=== PATIENT | male | born 1975 | race Caucasian/White ===

== ENCOUNTER 2017-02-07 21:36 | Emergency (ER) | payer MEDICARE, MEDICAID ==
[~2017-02-07 21:36] MED LIST: COMPAZINE10 MG PO; DEPAKOTE ER500 M1 PO; DILANTIN100 M1 PO; IBUPROFEN800 M1 PO; LIPITOR10 M1 PO; NORCO 5-325 TA1 EACH PO
[2017-02-07] MEDS ORDERED: BENTYL10 M1 PO (22:06)
[2017-02-07] MEDS ORDERED: ZOFRAN4 M2 PO (22:06)
[2017-07-12] MEDS ORDERED: NORCO 5-325 TA1 EACH PO (20:55)
[2017-08-08] MEDS ORDERED: ELIQUIS5 M1 PO (21:02)
[2017-08-08] MEDS ORDERED: glycopyrolate (21:04)
[2017-08-08] MEDS ORDERED: ZOFRAN4 M2 PO (21:05)
[2017-08-08] MEDS ORDERED: CYCLOBENZAPRINE10 M1 PO (22:24)
== END 2017-02-07 21:55 ==
LOC: EDMED 21:36
DX: K52.9 Noninfective gastroenteritis and colitis, unspecified (principal); I25.2 Old myocardial infarction; I10 Essential (primary) hypertension; G40.909 Epilepsy, unspecified, not intractable, without status epilepticus; F32.9 Major depressive disorder, single episode, unspecified; Z90.49 Acquired absence of other specified parts of digestive tract; Z79.899 Other long term (current) drug therapy

== ENCOUNTER 2017-03-10 22:04 | Emergency (ER) | payer MEDICARE, MEDICAID ==
[~2017-03-10 22:04] MED LIST changes: +BENTYL10 M1 PO; +ZOFRAN4 M2 PO
[2017-03-10 22:57] LABS: BASO % 0.8 % (0-2); BASO ABSOLUTE COUNT 0.1 tho/cmm (0.0-0.2); EOS % 6.4 % (0-7); EOSINOPHIL ABSOLUTE COUNT 0.5 tho/cmm (0.0-0.7); HGB-HEMOGLOBIN 13.5 gm/dl (13.5-17.0); IMMATURE GRANULOCYTES ABSOLUTE 0.01 tho/cmm (0-0.03); IMMATURE GRANULOCYTES PERCENT 0.1 % (0-0.3); LYMPH % 30.9 % (20-45); LYMPH ABSOLUTE COUNT 2.3 tho/cmm (0.8-4.5); MCH (MEAN CORPUSCULAR HGB) 32.1 pg (28.0-32.0); MCHC MEAN CORPUSCULAR HGB CONC 35.5 % (32.0-36.0); MCV (MEAN CELL VOLUME) 90.5 fl (82.0-96.0); MEAN PLATELET VOLUME 10.9 cmc (9.4-12.4); MONO % 10.5 % (0-12); MONOCYTE ABSOLUTE COUNT 0.8 tho/cmm (0.0-1.2); NEUTROPHIL ABSOLUTE COUNT 3.9 tho/cmm (1.6-8.0); NEUTROPHIL-AUTOMATED 3.9 tho/cmm (1.6-8.0); NEUTROPHILS % 51.3 % (40-80); PLATELET COUNT 183 tho/cmm (150-450); RED CELL DISTRIBUTION WIDTH 11.8 % (12.4-16.4); WHITE BLOOD COUNT 7.5 tho/cmm (4.0-10.0)
[2017-03-10 23:10] LABS: ALB/GLOB RATIO 0.9 (0.8-2.0); ALBUMIN 3.4 g/dl (3.5-5.0); ALKALINE PHOSPHATASE 53 U/L (33-138); ALT/SGPT 27 U/L (12-78); ANION GAP 13 mmol/L (0-20); AST/SGOT 21 U/L (10-40); BILIRUBIN,TOTAL 0.2 mg/dl (0.0-1.5); BLOOD UREA NITROGEN 13 mg/dl (6-24); CALCIUM 8.5 mg/dl (8.5-10.5); CARBON DIOXIDE-VENOUS 24 mmol/L (22-32); CHLORIDE 108 mmol/l (96-110); CREATININE 0.75 mg/dl (0.60-1.30); GLUCOSE 97 mg/dL (70-110); LIPASE 233 U/L (73-393); POTASSIUM 3.6 mmol/L (3.7-5.1); SODIUM 141 mmol/L (135-145); eGFR VALUE FOR BLACK >90 mL/Min
[2017-03-10 23:33] LABS: URINE APPEARANCE HAZY; URINE BILIRUBIN NEGATIVE (NEG); URINE BLOOD NEGATIVE (NEG); URINE COLOR YELLOW; URINE GLUCOSE (UA) NEGATIVE (NEG); URINE KETONE NEGATIVE (NEG); URINE LEUKOCYTE ESTERASE POSITIVE (NEG); URINE NITRITE NEGATIVE (NEG); URINE PROTEIN NEGATIVE (NEG); URINE SPECIFIC GRAVITY 1.005 (1.003-1.030)
[2017-03-10 23:57] LABS: URINE BACTERIA 1+; URINE EPITHELIAL CELLS RARE /[HPF] (0-10); URINE RBC 0-3 /[HPF] (0-5)
[2017-07-12] MEDS ORDERED: NORCO 5-325 TA1 EACH PO (20:55)
[2017-08-08] MEDS ORDERED: ELIQUIS5 M1 PO (21:02)
[2017-08-08] MEDS ORDERED: glycopyrolate (21:04)
[2017-08-08] MEDS ORDERED: ZOFRAN4 M2 PO (21:05)
[2017-08-08] MEDS ORDERED: CYCLOBENZAPRINE10 M1 PO (22:24)
== END 2017-03-11 00:17 ==
LOC: EDMED 22:04
PROVIDERS: Emergency Medicine
DX: M54.16 Radiculopathy, lumbar region (principal); R10.31 Right lower quadrant pain; G89.29 Other chronic pain; I10 Essential (primary) hypertension; F32.9 Major depressive disorder, single episode, unspecified; E78.5 Hyperlipidemia, unspecified; Z79.899 Other long term (current) drug therapy
CPT/HCPCS: J1885; J2405

== ENCOUNTER 2017-03-13 21:17 | Emergency (ER) | payer MEDICARE, MEDICAID ==
[2017-07-12] MEDS ORDERED: NORCO 5-325 TA1 EACH PO (20:55)
[2017-08-08] MEDS ORDERED: ELIQUIS5 M1 PO (21:02)
[2017-08-08] MEDS ORDERED: glycopyrolate (21:04)
[2017-08-08] MEDS ORDERED: ZOFRAN4 M2 PO (21:05)
[2017-08-08] MEDS ORDERED: CYCLOBENZAPRINE10 M1 PO (22:24)
== END 2017-03-14 00:15 ==
LOC: EDMED 21:17
DX: M54.9 Dorsalgia, unspecified (principal); G89.29 Other chronic pain; I25.2 Old myocardial infarction; I10 Essential (primary) hypertension; F32.9 Major depressive disorder, single episode, unspecified; Z79.899 Other long term (current) drug therapy
CPT/HCPCS: J2270; J2405; J3360

== ENCOUNTER 2017-05-02 20:16 | Emergency (ER) | payer MEDICARE, MEDICAID ==
[2017-05-02] MEDS ORDERED: ZITHROMAX500 M2 PO (21:28)
[2017-05-02] MEDS ORDERED: CODEINE-GUAIFE120 M1 PO (21:28)
[2017-07-12] MEDS ORDERED: NORCO 5-325 TA1 EACH PO (20:55)
[2017-08-08] MEDS ORDERED: ELIQUIS5 M1 PO (21:02)
[2017-08-08] MEDS ORDERED: glycopyrolate (21:04)
[2017-08-08] MEDS ORDERED: ZOFRAN4 M2 PO (21:05)
[2017-08-08] MEDS ORDERED: CYCLOBENZAPRINE10 M1 PO (22:24)
== END 2017-05-02 21:32 ==
LOC: EDMED 20:16
DX: J40 Bronchitis, not specified as acute or chronic (principal); G40.909 Epilepsy, unspecified, not intractable, without status epilepticus; Z90.49 Acquired absence of other specified parts of digestive tract; Z79.899 Other long term (current) drug therapy

== ENCOUNTER 2017-07-20 14:49 | Observation (INO) | payer MEDICARE, MEDICAID ==
[~2017-07-20] VITALS: Ht 190.5 cm; Wt 99.5 kg
[~2017-07-20 14:49] MED LIST changes: +CODEINE-GUAIFE120 M1 PO; +ZITHROMAX500 M2 PO
[2017-07-20] MEDS ORDERED: 8 HOUR PAIN RE650 M2 PO (15:22)
[2017-07-20] MEDS ORDERED: EPIPEN 2-P0.3 MG/0.3 IM (15:24)
[2017-07-20 15:52] LABS: BASO % 1.4 % (0-2); BASO ABSOLUTE COUNT 0.1 tho/cmm (0.0-0.2); EOS % 3.5 % (0-7); EOSINOPHIL ABSOLUTE COUNT 0.2 tho/cmm (0.0-0.7); HCT-HEMATOCRIT 43.6 % (36.0-53.5); HGB-HEMOGLOBIN 15.7 gm/dl (13.5-17.0); IMMATURE GRANULOCYTES ABSOLUTE 0.04 tho/cmm (0-0.03); IMMATURE GRANULOCYTES PERCENT 0.6 % (0-0.3); LYMPH % 29.1 % (20-45); MCH (MEAN CORPUSCULAR HGB) 32.6 pg (28.0-32.0); MCV (MEAN CELL VOLUME) 90.5 fl (82.0-96.0); MEAN PLATELET VOLUME 11.4 cmc (9.4-12.4); MONO % 10.1 % (0-12); MONOCYTE ABSOLUTE COUNT 0.7 tho/cmm (0.0-1.2); NEUTROPHIL ABSOLUTE COUNT 3.8 tho/cmm (1.6-8.0); NEUTROPHIL-AUTOMATED 3.8 tho/cmm (1.6-8.0); NEUTROPHILS % 55.3 % (40-80); PLATELET COUNT 206 tho/cmm (150-450); RED BLOOD COUNT 4.82 mil/cmm (4.40-5.70); RED CELL DISTRIBUTION WIDTH 11.8 % (12.4-16.4); WHITE BLOOD COUNT 6.9 tho/cmm (4.0-10.0)
[2017-07-20 16:08] LABS: ANION GAP 13 mmol/L (0-20); BLOOD UREA NITROGEN 14 mg/dl (6-24); CALCIUM 8.8 mg/dl (8.5-10.5); CARBON DIOXIDE-VENOUS 24 mmol/L (22-32); CHLORIDE 106 mmol/l (96-110); CREATININE 0.89 mg/dl (0.60-1.30); GLUCOSE 76 mg/dL (70-110); POTASSIUM 3.8 mmol/L (3.7-5.1); SODIUM 139 mmol/L (135-145); eGFR VALUE FOR BLACK >90 mL/Min
[2017-07-20 16:13] LABS: URINE APPEARANCE CLEAR; URINE BILIRUBIN NEGATIVE (NEG); URINE BLOOD SMALL (NEG); URINE COLOR DARK YELLOW; URINE GLUCOSE (UA) NEGATIVE (NEG); URINE KETONE NEGATIVE (NEG); URINE LEUKOCYTE ESTERASE NEGATIVE (NEG); URINE NITRITE NEGATIVE (NEG); URINE PROTEIN SMALL (NEG)
[2017-07-20 16:15] LABS: URINE WBC 0-2 /[HPF] (0-5)
[2017-07-20 16:16] LABS: URINE EPITHELIAL CELLS 0-2 /[HPF] (0-10); URINE RBC 0-2 /[HPF] (0-5)
[2017-07-21 18:09] LABS: CREATINE PHOSPHOKINASE (CPK) 60 U/L (35-232); VALPROIC ACID (DEPAKOTE) 89 ug/ml (50-100)
[2017-07-21 18:14] LABS: C-REACTIVE PROTEIN <0.3 mg/dl (0-0.9)
[2017-07-22 06:38] LABS: ANION GAP 12 mmol/L (0-20); BLOOD UREA NITROGEN 14 mg/dl (6-24); CALCIUM 8.3 mg/dl (8.5-10.5); CARBON DIOXIDE-VENOUS 25 mmol/L (22-32); CHLORIDE 108 mmol/l (96-110); CREATININE 0.71 mg/dl (0.60-1.30); GLUCOSE 90 mg/dL (70-110); POTASSIUM 3.9 mmol/L (3.7-5.1); SODIUM 141 mmol/L (135-145); eGFR VALUE FOR BLACK >90 mL/Min
[2017-07-22] MEDS ORDERED: GABAPENTIN300 M1 PO (17:23)
[2017-07-22] MEDS ORDERED: PROTONIX40 M2 PO (17:25)
[2017-07-22] MEDS ORDERED: DELTASONE20 MG PO (17:28)
[2017-07-23] MEDS ORDERED: NORCO 5/3251 TAB PO (01:02)
[2017-07-23] MEDS ORDERED: I PRIN PO (01:05)
== END 2017-07-22 18:26 ==
LOC: EDMED 14:49 → EMR2 17:58 → CAR1 17:58
PROVIDERS: Emergency Medicine; Nurse Practitioner Family; Physician Assistant; Psychiatry & Neurology Neurology; ADMIT Internal Medicine Clinical Cardiac Electrophysiology
PROC: B2111ZZ Fluoroscopy of Multiple Coronary Arteries using Low Osmolar Contrast (ICD-10-PCS; principal; 2017-07-22)
DX: R07.89 Other chest pain (principal); I10 Essential (primary) hypertension; E78.5 Hyperlipidemia, unspecified; J45.909 Unspecified asthma, uncomplicated; G40.909 Epilepsy, unspecified, not intractable, without status epilepticus; M51.36 Other intervertebral disc degeneration, lumbar region; Z79.899 Other long term (current) drug therapy; Z91.030 Bee allergy status
CPT/HCPCS: A9500; A9577; C1887; C1894; C8929; G0378; J1644; J1885; J2250; J2405; J2785; J3010; J7030; J7512; Q9967

== ENCOUNTER 2017-07-23 00:25 | Emergency (ER) | payer MEDICARE, MEDICAID ==
[~2017-07-23] VITALS: Ht 190.5 cm; Wt 99.0 kg
[~2017-07-23 00:25] MED LIST changes: +8 HOUR PAIN RE650 M2 PO; +DELTASONE20 MG PO; +EPIPEN 2-P0.3 MG/0.3 IM; +GABAPENTIN300 M1 PO; +PROTONIX40 M2 PO
[2017-07-23] MEDS ORDERED: NORCO 5/3251 TAB PO (01:02)
[2017-07-23] MEDS ORDERED: I PRIN PO (01:05)
== END 2017-07-23 01:11 ==
LOC: EDMED 00:25
DX: M25.531 Pain in right wrist (principal); I25.2 Old myocardial infarction; I10 Essential (primary) hypertension; Z86.73 Personal history of transient ischemic attack (TIA), and cerebral infarction without residual deficits; Z90.49 Acquired absence of other specified parts of digestive tract; Z98.890 Other specified postprocedural states; Z79.899 Other long term (current) drug therapy